=== PATIENT | male | born 1975 | race Caucasian/White ===

== ENCOUNTER 2023-04-05 13:40 | Emergency (ER) | payer MEDICARE ==
[2023-04-05] MEDS ORDERED: NEOSYNEPHRINE 0.5% NASAL SPRAY/DROPS ONE (13:42)
[2023-04-05 13:55] VITALS: TEMP 97
[2023-04-05] MEDS ORDERED: NEOSYNEPHRINE 0.5% NASAL SPRAY/DROPS NS ONE (13:55)
--- NOTE | 2023-04-05 14:01 | ERPHSYRPT ---
- History of Present Illness Time Seen by Provider: 04/05/23 13:50 Source: patient, family Exam Limitations: no limitations Patient Subjective Stated Complaint: pt for sudden onset of nose bleed to right side of nostral, no injury Triage Nursing Assessment: pt alert, anxious, bleeding from right nostril, resp easy, skin w/d/p Physician History: This is a 48-year-old white male patient who was brought into the emergency department by his spouse who provided independent, additional history and who lives in [facility], for sudden onset of right nostril nosebleed. Patient denies trauma of any kind to the nose. Patient has a history of chronic anemia. He has been told that he has a bleeding, clotting disorder. He was not specific. He also was told that he had problems with platelets. He does not see animal cytologist per his report. Patient has a history of hypertension, bipolar disorder, depression and anxiety. Patient had a gastric bypass surgery done in the distant past. He has no known liver disease Timing/Duration: abrupt onset Severity: moderate ENT Location: nose Prearrival Treatment: no prearrival treatment (Right nostril) Modifying Factors: Improves With: nothing Associated Symptoms: epistaxis (Right nostril) Allergies/Adverse Reactions: Penicillins Allergy (Verified 09/09/19 15:05) tramadol [From Ultram] Allergy (Verified 09/09/19 15:05) acetaminophen [From Tylenol] Adverse Reaction (Verified 09/09/19 15:05) Home Medications: ALPRAZolam [Alprazolam] 0.5 mg PO DAILY 04/05/23 [History] Amlodipine Besylate 5 mg [Norvasc 5 mg] 5 mg PO DAILY 04/05/23 [History] Fluoxetine HCl 10 mg [Prozac 10 mg] 10 mg PO DAILY 04/05/23 [History] OLANZapine [Olanzapine] 7.5 mg PO DAILY 04/05/23 [History] Hx Tetanus, Diphtheria Vaccination/Date Given: Yes Hx Influenza Vaccination/Date Given: No Hx Pneumococcal Vaccination/Date Given: No Immunizations Up to Date: Yes Travel Risk - International Travel Have you traveled outside of the country in past 3 weeks: No - Coronavirus Screening Are you exhibiting any of the following symptoms?: No Close contact with a COVID-19 positive Pt in past 14-21 Days: No - Vaccine Status Have you recieved a Covid-19 vaccination: Yes Store Operations Associate: Moderna - Vaccination Dates Date of 2cond Vaccination (if applicable): n/a - Review of Systems Constitutional: No Symptoms Eyes: No Symptoms Ears, Nose, & Throat: Epistaxis Respiratory: No Symptoms Cardiac: No Symptoms Abdominal/Gastrointestinal: No Symptoms Genitourinary Symptoms: No Symptoms Musculoskeletal: No Symptoms Skin: No Symptoms Neurological: No Symptoms Psychological: No Symptoms Endocrine: No Symptoms Hematologic/Lymphatic: No Symptoms Immunological/Allergic: No Symptoms All Other Systems: Reviewed and Negative - Past Medical History Pertinent Past Medical History: Yes Neurological History: No Pertinent History ENT History: No Pertinent History Cardiac History: Hypertension Respiratory History: No Pertinent History Endocrine Medical History: No Pertinent History Musculoskeletal History: No Pertinent History GI Medical History: Other Psycho-Social History: Bipolar, Depression Male Reproductive Disorders: No Pertinent History Other Medical History: dopamine def disorder - Past Surgical History Past Surgical History: Yes Gastrointestinal: Other, Cholecystectomy Genitourinary: No Pertinent History Musculoskeletal: No Pertinent History Male Surgical History: No Pertinent History Other Surgical History: gastric bypass-2007. degen disc. ulcer repair--ate thru gastric pouch - Social History Smoking Status: Current every day smoker How long have you smoked: 10 years Exposure to second hand smoke: No Drug Use: other Patient Lives Alone: No - Nursing Vital Signs Nursing Vital Signs: Initial Vital Signs Temperature 97 F 04/05/23 13:52 Respiratory Rate 20 04/05/23 13:52 Pain Scale Pain Intensity 4 - Physical Exam General Appearance: no apparent distress, alert, anxiety Eye Exam: bilateral eye: normal inspection, PERRL, EOMI Ear Exam: bilateral ear: auricle normal Nasal Exam: active bleeding, dried blood (Right nostril right nostril) Throat Exam: moist mucus membranes (With blood slowly trickling posterior pharynx) Neck Exam: normal inspection, non-tender, supple, full range of motion Cardiovascular/Respiratory Exam: chest non-tender, no respiratory distress Abdominal Exam: non-tender Neurologic Exam: alert, oriented x 3, cooperative, seat trimmer II-XII nml as tested Skin Exam: normal color, warm, dry SpO2 Interpretation: normal O2 Delivery: Room Air - Course Nursing assessment & vital signs reviewed: Yes EKG Interpreted by Me: RATE (68), Sinus Rhythm, NORMAL AXIS, NORMAL QRS, NORMAL ST-T, Other (No acute ischemic changes on today's twelve-lead EKG.) Ordered Tests: Active Orders 24 hr Category Date Time Status EKG-ER Only STAT Care 04/05/23 14:05 Active IV Insertion STAT Care 04/05/23 14:01 Active CBC W DIFF Stat Lab 04/05/23 14:00 Completed CMP Stat Lab 04/05/23 14:00 Completed PROTIME WITH INR Stat Lab 04/05/23 14:00 Completed TROPONIN Q4H Lab 04/05/23 14:00 Completed TROPONIN Q4H Lab 04/05/23 18:15 Ordered TROPONIN Q4H Lab 04/05/23 22:15 Ordered Medication Summary Generic Name Dose Route Start Last Admin Trade Name Freq PRN Reason Stop Dose Admin Sodium Chloride 1,000 mls @ 100 mls/hr 04/05/23 14:15 04/05/23 14:09 Sodium Chloride 0.9% 1000 Ml IV 05/05/23 14:14 100 mls/hr .Q10H TIM Administration Discontinued Medications Generic Name Dose Route Start Last Admin Trade Name Freq PRN Reason Stop Dose Admin Lorazepam 0.5 mg 04/05/23 14:37 Lorazepam 2 Mg/1 Ml 2 Mg Vial IV 04/05/23 14:38 STAT ONE Phenylephrine HCl Confirm 04/05/23 13:42 Neosynephrine 0.5% Nasal [place]/Drops Administered 04/05/23 13:43 Dose 15 ml .ROUTE .STK-MED ONE Phenylephrine HCl 15 ml 04/05/23 13:55 04/05/23 13:56 Neosynephrine 0.5% Nasal [place]/Drops NS 04/05/23 13:56 15 ml STAT ONE Administration Lab/Rad Data: Laboratory Result Diagrams 04/05/23 14:00 04/05/23 14:00 Laboratory Results 04/05/23 04/05/23 04/05/23 Range/Units 14:00 14:00 14:00 WBC (4.0-10.5) x10^3/uL RBC (4.1-5.6) x10^6/uL Hgb (12.5-18.0) g/dL Hct (42-50) % MCV (78-100) fL MCH (26-32) pg MCHC (32-36) g/dL RDW (11.5-14.0) % Plt Count (150-450) x10^3/uL MPV (7.5-11.0) fL Gran % (36.0-66.0) % Immature Gran % (Auto) (0.00-0.4) % Nucleat RBC Rel Count (0.00-0.1) % Eos # (Auto) (0-0.5) x10^3/uL Immature Gran # (Auto) (0.00-0.03) x10^3u/L Absolute Lymphs (auto) (1.0-4.6) x10^3/uL Absolute Monos (auto) (0.0-1.3) x10^3/uL Absolute Nucleated RBC (0.00-0.01) x10^3u/L Lymphocytes % (24.0-44.0) % Monocytes % (0.0-12.0) % Eosinophils % (0.00-5.0) % Basophils % (0.0-0.4) % Absolute Granulocytes (1.4-6.9) x10^3/uL Basophils # (0-0.4) x10^3/uL PT 10.7 (9.4-12.5) SECONDS INR 0.98 (0.8-3.0) Sodium 132 L (137-145) mmol/L Potassium 3.7 (3.5-5.1) mmol/L Chloride 97 L (98-107) mmol/L Carbon Dioxide 29 (22-30) mmol/L Anion Gap 9.3 (5-15) MEQ/L BUN 9 (9-20) mg/dL Creatinine 0.70 (0.66-1.25) mg/dL Estimated GFR 113.0 ML/MIN Glucose 108 H (74-106) mg/dL Calcium 8.8 (8.4-10.2) mg/dL Total Bilirubin 0.30 (0.2-1.3) mg/dL AST 29 (17-59) U/L ALT 20 (0-50) U/L Alkaline Phosphatase 119 (38-126) U/L Troponin I < 0.012 (0.000-0.034) ng/mL Serum Total Protein 7.6 (6.3-8.2) g/dL Albumin 4.0 (3.5-5.0) g/dL 04/05/23 Range/Units 14:00 WBC 6.5 (4.0-10.5) x10^3/uL RBC 4.56 (4.1-5.6) x10^6/uL Hgb 9.9 L (12.5-18.0) g/dL Hct 33.7 L (42-50) % MCV 73.9 L (78-100) fL MCH 21.7 L (26-32) pg MCHC 29.4 L (32-36) g/dL RDW 23.6 H (11.5-14.0) % Plt Count 355 (150-450) x10^3/uL MPV 8.5 (7.5-11.0) fL Gran % 55.7 (36.0-66.0) % Immature Gran % (Auto) 0.3 (0.00-0.4) % Nucleat RBC Rel Count 0.0 (0.00-0.1) % Eos # (Auto) 0.11 (0-0.5) x10^3/uL Immature Gran # (Auto) 0.02 (0.00-0.03) x10^3u/L Absolute Lymphs (auto) 1.91 (1.0-4.6) x10^3/uL Absolute Monos (auto) 0.72 (0.0-1.3) x10^3/uL Absolute Nucleated RBC 0.00 (0.00-0.01) x10^3u/L Lymphocytes % 29.5 (24.0-44.0) % Monocytes % 11.1 (0.0-12.0) % Eosinophils % 1.7 (0.00-5.0) % Basophils % 1.7 (0.0-0.4) % Absolute Granulocytes 3.61 (1.4-6.9) x10^3/uL Basophils # 0.11 (0-0.4) x10^3/uL PT (9.4-12.5) SECONDS INR (0.8-3.0) Sodium (137-145) mmol/L Potassium (3.5-5.1) mmol/L Chloride (98-107) mmol/L Carbon Dioxide (22-30) mmol/L Anion Gap (5-15) MEQ/L BUN (9-20) mg/dL Creatinine (0.66-1.25) mg/dL Estimated GFR ML/MIN Glucose (74-106) mg/dL Calcium (8.4-10.2) mg/dL Total Bilirubin (0.2-1.3) mg/dL AST (17-59) U/L ALT (0-50) U/L Alkaline Phosphatase (38-126) U/L Troponin I (0.000-0.034) ng/mL Serum Total Protein (6.3-8.2) g/dL Albumin (3.5-5.0) g/dL - Progress Progress: improved, re-examined Progress Note: 04/05/23 13:59 This patient's medical issue is 1 of moderate complexity. Level complex in the workup performed is based on review of the patient's past medical history, review the patient's medication list, review the patient's drug allergy list, history of present illness and physical findings on examination. Workup includes placement of intravenous line, CBC, CMP, PT/INR. We also will be infusing low rate normal saline solution. Upon entrance into the emergency department, 3 sprays of Lev-Synephrine were placed into the patient's right nostril and a nasal clip was applied. While this was in place we obtained the posterior Rhino Rocket. We then removed the nasal clamp and placed the posterior Rhino Rocket in the right nostril without difficulty and inflated both ports with air. This seemed to significantly slow down the bleeding from the right nostril. 04/05/23 14:17 Few of the medication list initially provided to us shows no anticoagulation therapy. Patient's spouse specifically stated that he has tolerated Keflex without any issues. Patient began complaining of some central, substernal chest pain without radiation. He describes this as an ache. Patient also states that he has a history of bradycardia. This is chronic. 04/05/23 14:32 I interpreted the laboratory results that have returned thus far. I also interpreted the twelve-lead EKG. There is no evidence of any acute ischemic changes on today's twelve-lead EKG. Patient's hemoglobin is 9.9 which is much higher than it had been in the past. His platelet count is normal. His PT/INR also within normal limits. There is no other acute, emergent findings. We are awaiting the results of the troponin level. I reexamined the patient and he feels as though there is bleeding present. There certainly is not any anterior bleeding from the right nostril. There are some dried clots present that may be dissolving in the posterior pharyngeal region. We contacted [facility] service learning coordinator. They are to call the patient to set up/arrange an outpatient appointment. 04/05/23 14:36 04/05/23 14:59 I reexamined with a light and used a Yankauer suction in the back of her throat. There is no active bleeding coming from superior area. Patient is coughing up some old clot but nothing new. There is no more nasal epistaxis present. Patient is extremely anxious. I emphasized that the patient does not need emergent transfer to another facility. I am discharging him to home. Counseled pt/family regarding: lab results, diagnosis, need for follow-up Medical Desision Making - Independent Historian Additional History obtained from: Spouse - Diagnostic Testing Diagnostic test were ordered, analyzed, and reviewed by me: Yes - Risk of complications The pt has a mod risk of morbidity or mortality based on: Need for prescription drug management - Departure Departure Disposition: Home Clinical Impression: Epistaxis, Anxiety about health Condition: Stable Critical Care Time: No Referrals: DOCTOR,NO FAMILY [Primary Care Provider] - Follow up/PCP as directed Additional Instructions: Rinse your mouth out 2-3 times a day with either plain water or you may use Listerine or other type mouthwash. Take your antibiotics as prescribed. Avoid aspirin and ibuprofen products. The [facility] ear nose and throat clinic will call you with an appointment date and time for follow-up. If the bleeding increases, proceed to the [facility] emergency department. You have been medically stabilized and do not require transfer to another facility. Keep the Rhino Rocket in place until you are evaluated by the service learning coordinator. Prescriptions: Cephalexin Mh 500 mg [Keflex 500 mg] 500 mg PO TID #21 cap
[2023-04-05] MEDS ORDERED: Sodium Chloride 0.9% 1000 ML 1,000 ML ONE (14:05)
[2023-04-05 14:11] LABS: Absolute Neutrophil Ct (ANC) 3.61 x10^3/uL (1.4-6.9); BASOPHIL % 1.7 % (0.0-0.4); Basophil (Absolute #) 0.11 x10^3/uL (0-0.4); Eosinophil % 1.7 % (0.00-5.0); Eosinophil (Absolute #) 0.11 x10^3/uL (0-0.5); Hematocrit 33.7 % (42-50); Hemoglobin 9.9 g/dL (12.5-18.0); IMMATURE GRAN # 0.02 x10^3u/L (0.00-0.03); IMMATURE GRAN % 0.3 % (0.00-0.4); Lymphocyte (Absolute #) 1.91 x10^3/uL (1.0-4.6); Lymphocytes % 29.5 % (24.0-44.0); Mean Cell Volume 73.9 fL (78-100); Mean Corpuscular Hemoglobin 21.7 pg (26-32); Mean Corpuscular Hgb Concent. 29.4 g/dL (32-36); Mean Platelet Volume 8.5 fL (7.5-11.0); Monocyte (Absolute #) 0.72 x10^3/uL (0.0-1.3); Monocytes % 11.1 % (0.0-12.0); Neutrophil % 55.7 % (36.0-66.0); Platelet Count 355 x10^3/uL (150-450); Red Blood Count 4.56 x10^6/uL (4.1-5.6); Red Cell Distribution Width 23.6 % (11.5-14.0); White Blood Count 6.5 x10^3/uL (4.0-10.5)
[2023-04-05] MEDS ORDERED: Sodium Chloride 0.9% 1000 ML 1,000 ML IV SCH (14:15)
[2023-04-05 14:26] LABS: ANION GAP 9.3 MEQ/L (5-15); BILIRUBIN,TOTAL 0.3 mg/dL (0.2-1.3); Calcium 8.8 mg/dL (8.4-10.2); Creatinine 1 0.7 mg/dL (0.66-1.25); INR 0.98 (0.8-3.0); PROTIME 10.7 SECONDS (9.4-12.5); Potassium 3.7 mmol/L (3.5-5.1); Total Protein 7.6 g/dL (6.3-8.2)
[2023-04-05] MEDS ORDERED: Ativan 2 MG/1 ML VIAL IV ONE ×2 (14:37→15:02)
[2023-04-05] MEDS ORDERED: Ativan 2 MG/1 ML VIAL ONE ×2 (15:01→15:12)
[2023-04-05 15:23] VITALS: RESP 17; O2SAT 100
[2023-04-05 15:24] VITALS: BP 99/63; PULSE 130
[2023-04-05 15:31] LABS: Slide Review 1 YES
== END 2023-04-05 15:45 | disposition home or self-care (01) ==
LOC: ED 13:40
DX: R04.0 Epistaxis (principal); F45.9 Somatoform disorder, unspecified; R07.9 Chest pain, unspecified; I10 Essential (primary) hypertension; Z79.899 Other long term (current) drug therapy; Z72.0 Tobacco use
CPT/HCPCS: 30905; 36000; 36415; 80053; 84484; 85025; 85610; 93005; 96374; 99284; J2060; A9270-GY

== ENCOUNTER 2023-04-10 09:43 | Emergency (ER) | payer MEDICARE ==
[2023-04-10] MEDS ORDERED: Sodium Chloride 0.9% 1000 ML 1,000 ML IV SCH (10:00)
[2023-04-10 10:01] VITALS: TEMP 97
[2023-04-10] MEDS ORDERED: Sodium Chloride 0.9% 1000 ML 1,000 ML ONE (10:20)
[2023-04-10 10:27] LABS: Absolute Neutrophil Ct (ANC) 4.22 x10^3/uL (1.4-6.9); Basophil (Absolute #) 0.06 x10^3/uL (0-0.4); Eosinophil % 1.4 % (0.00-5.0); Eosinophil (Absolute #) 0.08 x10^3/uL (0-0.5); Hematocrit 33.4 % (42-50); Hemoglobin 9.9 g/dL (12.5-18.0); IMMATURE GRAN # 0.01 x10^3u/L (0.00-0.03); IMMATURE GRAN % 0.2 % (0.00-0.4); Lymphocyte (Absolute #) 0.84 x10^3/uL (1.0-4.6); Lymphocytes % 14.4 % (24.0-44.0); Mean Cell Volume 75.1 fL (78-100); Mean Corpuscular Hemoglobin 22.2 pg (26-32); Mean Corpuscular Hgb Concent. 29.6 g/dL (32-36); Mean Platelet Volume 8.6 fL (7.5-11.0); Monocyte (Absolute #) 0.61 x10^3/uL (0.0-1.3); Monocytes % 10.5 % (0.0-12.0); Neutrophil % 72.5 % (36.0-66.0); Platelet Count 379 x10^3/uL (150-450); Red Blood Count 4.45 x10^6/uL (4.1-5.6); Red Cell Distribution Width 22.6 % (11.5-14.0); White Blood Count 5.8 x10^3/uL (4.0-10.5)
[2023-04-10] MEDS ORDERED: Ativan 2 MG/1 ML VIAL IV ONE (10:29)
[2023-04-10] MEDS ORDERED: Ativan 2 MG/1 ML VIAL ONE (10:31)
[2023-04-10 10:35] VITALS: O2SAT 97
[2023-04-10 10:41] LABS: INR 0.94 (0.8-3.0); PROTIME 10.3 SECONDS (9.4-12.5)
[2023-04-10 10:44] LABS: ALBUMIN 4.1 g/dL (3.5-5.0); BILIRUBIN,TOTAL 0.3 mg/dL (0.2-1.3); Calcium 8.8 mg/dL (8.4-10.2); Creatinine 1 0.66 mg/dL (0.66-1.25); Potassium 3.7 mmol/L (3.5-5.1); Total Protein 7.7 g/dL (6.3-8.2)
--- NOTE | 2023-04-10 10:47 | XRAY ---
Indication: Weakness. Comparison: None Portable chest hyperinflated and clear with incidental tiny left upper lung calcified granuloma. Heart not enlarged. Bony thorax intact with mild osteopenia and mild distal scoliosis centered at thoracolumbar junction. Impression: Nonacute hyperinflated chest with chronic features.
[2023-04-10 11:03] LABS: INFLUENZA A NEGATIVE (NEGATIVE); INFLUENZA B NEGATIVE (NEGATIVE); RESPIRATORY SYNCTIAL VIRUS NEGATIVE (NEGATIVE); SARS-CoV-2 Xpert Express NEGATIVE (NEGATIVE)
[2023-04-10 12:07] VITALS: BP 138/89; PULSE 66; RESP 21
--- NOTE | 2023-04-10 12:12 | ERPHSYRPT ---
- History of Present Illness Time Seen by Provider: 04/10/23 10:15 Source: patient, family Exam Limitations: no limitations Patient Subjective Stated Complaint: pt here for multi cos, dry mouth, coughing up sputum, aches. pt has nasal trumpet to right side of nostril from nose bleed on 04/05/23. he is unable to get a drs apt to take out, office hosptial referred him to refused to see pt, Triage Nursing Assessment: pt alert, resp easy,pt anxious, uncooperative at times. skin w/d/p.no edema noted, abd soft, Physician History: Patient is a 48-year-old white male who presents with multiple complaints primarily weakness cold symptoms flu like aches and pains he feels he is losing his voice and he has a cough producing some sputum. His other big problem is that he has a Rhino Rocket in the right nares that has been there since April 05. He has been unable to make an appointment with an ENT to have it removed. Allergies/Adverse Reactions: Penicillins Allergy (Verified 04/10/23 09:50) tramadol [From Ultram] Allergy (Verified 04/10/23 09:50) acetaminophen [From Tylenol] Adverse Reaction (Verified 04/10/23 09:50) Home Medications: ALPRAZolam [Alprazolam] 0.5 mg PO DAILY 04/05/23 [History] Amlodipine Besylate 5 mg [Norvasc 5 mg] 5 mg PO DAILY 04/05/23 [History] Fluoxetine HCl 10 mg [Prozac 10 mg] 10 mg PO DAILY 04/05/23 [History] OLANZapine [Olanzapine] 7.5 mg PO DAILY 04/05/23 [History] Hx Tetanus, Diphtheria Vaccination/Date Given: Yes Hx Influenza Vaccination/Date Given: No Hx Pneumococcal Vaccination/Date Given: No Immunizations Up to Date: Yes Travel Risk - International Travel Have you traveled outside of the country in past 3 weeks: No - Coronavirus Screening Are you exhibiting any of the following symptoms?: No Close contact with a COVID-19 positive Pt in past 14-21 Days: No - Vaccine Status Have you recieved a Covid-19 vaccination: Yes 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 - Vaccination Dates Date of 2cond Vaccination (if applicable): n/a - Review of Systems Constitutional: No Fever, No Chills Eyes: No Symptoms Ears, Nose, & Throat: No Symptoms, Epistaxis Respiratory: No Cough, No Dyspnea Cardiac: No Chest Pain, No Edema, No Syncope Abdominal/Gastrointestinal: No Abdominal Pain, No Nausea, No Vomiting, No Diarrhea Genitourinary Symptoms: No Dysuria Musculoskeletal: No Back Pain, No Neck Pain Skin: No Rash Neurological: No Dizziness, No Focal Weakness, No Sensory Changes Psychological: No Symptoms Endocrine: No Symptoms All Other Systems: Reviewed and Negative - Past Medical History Pertinent Past Medical History: Yes Neurological History: No Pertinent History ENT History: No Pertinent History Cardiac History: Hypertension Respiratory History: No Pertinent History Endocrine Medical History: No Pertinent History Musculoskeletal History: No Pertinent History GI Medical History: Other Psycho-Social History: Bipolar, Depression Male Reproductive Disorders: No Pertinent History Other Medical History: dopamine def disorder - Past Surgical History Past Surgical History: Yes Gastrointestinal: Other, Cholecystectomy Genitourinary: No Pertinent History Musculoskeletal: No Pertinent History Male Surgical History: No Pertinent History Other Surgical History: gastric bypass-2007. degen disc. ulcer repair--ate thru gastric pouch - Social History Smoking Status: Current every day smoker How long have you smoked: 10 years Exposure to second hand smoke: No Drug Use: other Patient Lives Alone: No - Nursing Vital Signs Nursing Vital Signs: Initial Vital Signs Blood Pressure 206/101 04/10/23 10:00 Pain Scale Pain Intensity 0 - Physical Exam General Appearance: no apparent distress, alert Eye Exam: PERRL/EOMI, eyes nml inspection Ears, Nose, Throat Exam: normal ENT inspection, TMs normal, pharynx normal, moist mucous membranes Neck Exam: normal inspection, non-tender, supple, full range of motion Respiratory Exam: normal breath sounds, lungs clear, No respiratory distress Cardiovascular Exam: regular rate/rhythm, normal heart sounds, normal peripheral pulses Gastrointestinal/Abdomen Exam: soft, normal bowel sounds, No tenderness, No mass Back Exam: normal inspection, normal range of motion, No CVA tenderness, No vertebral tenderness Extremity Exam: normal inspection, normal range of motion, pelvis stable Neurologic Exam: alert, oriented x 3, cooperative, normal mood/affect, nml cerebellar function, nml station & gait, sensation nml, No motor deficits Skin Exam: normal color, warm, dry, No rash Lymphatic Exam: No adenopathy SpO2: 97 - Course Nursing assessment & vital signs reviewed: Yes EKG Interpreted by Me: RATE (90), Sinus Rhythm, NORMAL AXIS, Non-specific ST Changes, Other (old inf mi) - Radiology Exams Chest X-ray Interpretation: Reviewed by me Ordered Tests: Active Orders 24 hr Category Date Time Status EKG-ER Only STAT Care 04/10/23 09:57 Active IV Insertion STAT Care 04/10/23 09:57 Active CHEST 1 VIEW (PORTABLE) Stat Exams 04/10/23 09:58 Completed AMYLASE Stat Lab 04/10/23 10:17 Completed CBC W DIFF Stat Lab 04/10/23 10:17 Completed CMP Stat Lab 04/10/23 10:17 Completed LIPASE Stat Lab 04/10/23 10:17 Completed Lactic Acid Stat Lab 04/10/23 10:20 Completed PROTIME WITH INR Stat Lab 04/10/23 10:17 Completed TROPONIN Q4H Lab 04/10/23 10:17 Completed TROPONIN Q4H Lab 04/10/23 14:00 Ordered TROPONIN Q4H Lab 04/10/23 18:00 Ordered UA W/RFX UR CULTURE Stat Lab 04/10/23 09:58 Ordered Urine Triage Profile Stat Lab 04/10/23 09:58 Ordered Medication Summary Generic Name Dose Route Start Last Admin Trade Name Freq PRN Reason Stop Dose Admin Sodium Chloride 1,000 mls @ 100 mls/hr 04/10/23 10:00 04/10/23 10:22 Sodium Chloride 0.9% 1000 Ml IV 05/10/23 09:59 100 mls/hr .Q10H TIM Administration Discontinued Medications Generic Name Dose Route Start Last Admin Trade Name Freq PRN Reason Stop Dose Admin Lorazepam 1 mg 04/10/23 10:29 04/10/23 10:32 Lorazepam 2 Mg/1 Ml 2 Mg Vial IV 04/10/23 10:30 1 mg STAT ONE Administration Lorazepam Confirm 04/10/23 10:31 Lorazepam 2 Mg/1 Ml 2 Mg Vial Administered 04/10/23 10:32 Dose 2 mg .ROUTE .STK-MED ONE Lab/Rad Data: Laboratory Result Diagrams 04/10/23 10:17 04/10/23 10:17 Laboratory Results 04/10/23 04/10/23 04/10/23 Range/Units 10:20 10:17 10:17 WBC (4.0-10.5) x10^3/uL RBC (4.1-5.6) x10^6/uL Hgb (12.5-18.0) g/dL Hct (42-50) % MCV (78-100) fL MCH (26-32) pg MCHC (32-36) g/dL RDW (11.5-14.0) % Plt Count (150-450) x10^3/uL MPV (7.5-11.0) fL Gran % (36.0-66.0) % Immature Gran % (Auto) (0.00-0.4) % Nucleat RBC Rel Count (0.00-0.1) % Eos # (Auto) (0-0.5) x10^3/uL Immature Gran # (Auto) (0.00-0.03) x10^3u/L Absolute Lymphs (auto) (1.0-4.6) x10^3/uL Absolute Monos (auto) (0.0-1.3) x10^3/uL Absolute Nucleated RBC (0.00-0.01) x10^3u/L Lymphocytes % (24.0-44.0) % Monocytes % (0.0-12.0) % Eosinophils % (0.00-5.0) % Basophils % (0.0-0.4) % Absolute Granulocytes (1.4-6.9) x10^3/uL Basophils # (0-0.4) x10^3/uL PT (9.4-12.5) SECONDS INR (0.8-3.0) Sodium (137-145) mmol/L Potassium (3.5-5.1) mmol/L Chloride (98-107) mmol/L Carbon Dioxide (22-30) mmol/L Anion Gap (5-15) MEQ/L BUN (9-20) mg/dL Creatinine (0.66-1.25) mg/dL Estimated GFR ML/MIN Glucose (74-106) mg/dL Lactic Acid 1.1 (0.4-2.0) Calcium (8.4-10.2) mg/dL Total Bilirubin (0.2-1.3) mg/dL AST (17-59) U/L ALT (0-50) U/L Alkaline Phosphatase (38-126) U/L Troponin I < 0.012 (0.000-0.034) ng/mL Serum Total Protein (6.3-8.2) g/dL Albumin (3.5-5.0) g/dL Amylase (30-110) U/L Lipase (23-300) U/L Influenza Type A Ag NEGATIVE (NEGATIVE) Influenza Type B Ag NEGATIVE (NEGATIVE) RSV (PCR) NEGATIVE (NEGATIVE) SARS-CoV-2 (PCR) NEGATIVE (NEGATIVE) 04/10/23 04/10/23 04/10/23 Range/Units 10:17 10:17 10:17 WBC 5.8 (4.0-10.5) x10^3/uL RBC 4.45 (4.1-5.6) x10^6/uL Hgb 9.9 L (12.5-18.0) g/dL Hct 33.4 L (42-50) % MCV 75.1 L (78-100) fL MCH 22.2 L (26-32) pg MCHC 29.6 L (32-36) g/dL RDW 22.6 H (11.5-14.0) % Plt Count 379 (150-450) x10^3/uL MPV 8.6 (7.5-11.0) fL Gran % 72.5 H (36.0-66.0) % Immature Gran % (Auto) 0.2 (0.00-0.4) % Nucleat RBC Rel Count 0.0 (0.00-0.1) % Eos # (Auto) 0.08 (0-0.5) x10^3/uL Immature Gran # (Auto) 0.01 (0.00-0.03) x10^3u/L Absolute Lymphs (auto) 0.84 L (1.0-4.6) x10^3/uL Absolute Monos (auto) 0.61 (0.0-1.3) x10^3/uL Absolute Nucleated RBC 0.00 (0.00-0.01) x10^3u/L Lymphocytes % 14.4 L (24.0-44.0) % Monocytes % 10.5 (0.0-12.0) % Eosinophils % 1.4 (0.00-5.0) % Basophils % 1.0 (0.0-0.4) % Absolute Granulocytes 4.22 (1.4-6.9) x10^3/uL Basophils # 0.06 (0-0.4) x10^3/uL PT 10.3 (9.4-12.5) SECONDS INR 0.94 (0.8-3.0) Sodium 132 L (137-145) mmol/L Potassium 3.7 (3.5-5.1) mmol/L Chloride 94 L (98-107) mmol/L Carbon Dioxide 30 (22-30) mmol/L Anion Gap 12.0 (5-15) MEQ/L BUN 8 L (9-20) mg/dL Creatinine 0.66 (0.66-1.25) mg/dL Estimated GFR 115.0 ML/MIN Glucose 113 H (74-106) mg/dL Lactic Acid (0.4-2.0) Calcium 8.8 (8.4-10.2) mg/dL Total Bilirubin 0.30 (0.2-1.3) mg/dL AST 21 (17-59) U/L ALT 16 (0-50) U/L Alkaline Phosphatase 97 (38-126) U/L Troponin I (0.000-0.034) ng/mL Serum Total Protein 7.7 (6.3-8.2) g/dL Albumin 4.1 (3.5-5.0) g/dL Amylase 50 (30-110) U/L Lipase 40 (23-300) U/L Influenza Type A Ag (NEGATIVE) Influenza Type B Ag (NEGATIVE) RSV (PCR) (NEGATIVE) SARS-CoV-2 (PCR) (NEGATIVE) - Progress Progress: improved Progress Note: 04/10/23 12:10 Rhino Rocket was removed without incident or further recurrent bleeding. Medical Desision Making - Independent Historian Additional History obtained from: Relative/friend - Diagnostic Testing Diagnostic test were ordered, analyzed, and reviewed by me: Yes Radiological Interpretation: Reviewed by me - Risk of complications Low Risk: Low risk of morbidity from additional dx testing or treatment - Departure Departure Disposition: Home Clinical Impression: Upper respiratory infection, Epistaxis Condition: Stable Critical Care Time: No Referrals: BRYN BLACK DO [Primary Care Provider] - Follow up/PCP as directed
[2023-04-10 12:35] LABS: Slide Review 1 YES
== END 2023-04-10 12:15 | disposition home or self-care (01) ==
LOC: ED 09:43
DX: J06.9 Acute upper respiratory infection, unspecified (principal); R04.0 Epistaxis; R53.1 Weakness; M79.10 Myalgia, unspecified site; R05.9 Cough, unspecified; I10 Essential (primary) hypertension; Z79.899 Other long term (current) drug therapy; Z72.0 Tobacco use; Z20.828 Contact with and (suspected) exposure to other viral communicable diseases
CPT/HCPCS: 0241U; 36000; 36415; 71045; 80053; 82150; 83605; 83690; 84484; 85025; 85610; 93005; 96360; 96374; 99284; J2060

== ENCOUNTER 2023-05-26 14:07 | Emergency (ER) | payer MEDICAID, MEDICARE ==
--- NOTE | 2023-05-26 14:38 | ERPHSYRPT ---
- History of Present Illness Time Seen by Provider: 05/26/23 14:37 Source: patient Exam Limitations: no limitations Physician History: This is a 48-year-old white male patient who has had symptoms of headache, intermittent cough, right ear fullness and body aches for over 3 weeks. He has no known exposure to specific individuals that have similar symptoms or been diagnosed with flu. Patient denies chest pain. He does not have shortness of breath at this time. Patient has a history anxiety and hypertension. Patient has not had a fever. He has had no vomiting or diarrhea symptoms. Timing/Duration: week(s) (For 3 weeks), intermittent Cough Quality/Degree: moderate, dry cough Possible Cause: no prior episodes Modifying Factors: Improves With: coughing Associated Symptoms: cough, headache, muscle aches, sore throat Allergies/Adverse Reactions: Penicillins Allergy (Verified 04/10/23 09:50) tramadol [From Ultram] Allergy (Verified 04/10/23 09:50) acetaminophen [From Tylenol] Adverse Reaction (Verified 04/10/23 09:50) Home Medications: ALPRAZolam [Alprazolam] 0.5 mg PO DAILY 04/05/23 [History] Amlodipine Besylate 5 mg [Norvasc 5 mg] 5 mg PO DAILY 04/05/23 [History] Fluoxetine HCl 10 mg [Prozac 10 mg] 10 mg PO DAILY 04/05/23 [History] OLANZapine [Olanzapine] 7.5 mg PO DAILY 04/05/23 [History] Hx Tetanus, Diphtheria Vaccination/Date Given: Yes Hx Influenza Vaccination/Date Given: No Hx Pneumococcal Vaccination/Date Given: No Travel Risk - International Travel Have you traveled outside of the country in past 3 weeks: No - Coronavirus Screening Are you exhibiting any of the following symptoms?: Yes Symptoms: Cough: New Onset, Headaches/Body Aches/Fatigue - Vaccine Status Have you recieved a Covid-19 vaccination: Yes Clinical Marketing Manager: Moderna - Vaccination Dates Date of 2cond Vaccination (if applicable): n/a - Review of Systems Constitutional: No Symptoms Eyes: No Symptoms Ears, Nose, & Throat: No Symptoms Respiratory: Cough Cardiac: No Symptoms Abdominal/Gastrointestinal: No Symptoms Musculoskeletal: Arthralgias, Myalgias Skin: No Symptoms Neurological: Headache Psychological: No Symptoms Endocrine: No Symptoms Hematologic/Lymphatic: No Symptoms Immunological/Allergic: No Symptoms All Other Systems: Reviewed and Negative - Past Medical History Pertinent Past Medical History: Yes Neurological History: No Pertinent History ENT History: No Pertinent History Cardiac History: Hypertension Respiratory History: No Pertinent History Endocrine Medical History: No Pertinent History Musculoskeletal History: No Pertinent History GI Medical History: Other Psycho-Social History: Bipolar, Depression Male Reproductive Disorders: No Pertinent History Other Medical History: dopamine def disorder - Past Surgical History Past Surgical History: Yes Gastrointestinal: Other, Cholecystectomy Genitourinary: No Pertinent History Musculoskeletal: No Pertinent History Male Surgical History: No Pertinent History Other Surgical History: gastric bypass-2007. degen disc. ulcer repair--ate thru gastric pouch - Social History Smoking Status: Current every day smoker How long have you smoked: 10 years Exposure to second hand smoke: No Drug Use: other Patient Lives Alone: No - Nursing Vital Signs Nursing Vital Signs: Initial Vital Signs Temperature 99.0 F 05/26/23 14:34 Pulse Rate 64 05/26/23 14:34 Respiratory Rate 20 05/26/23 14:34 Blood Pressure 186/94 05/26/23 14:34 O2 Sat by Pulse Oximetry 98 05/26/23 14:34 Pain Scale Pain Intensity 5 - Physical Exam General Appearance: no apparent distress, alert, anxiety Eye Exam: PERRL/EOMI, eyes nml inspection Ears, Nose, Throat Exam: normal ENT inspection, moist mucous membranes Neck Exam: normal inspection, non-tender, supple, full range of motion Respiratory Exam: normal breath sounds, lungs clear, airway intact, No chest tenderness, No respiratory distress Cardiovascular Exam: regular rate/rhythm, normal heart sounds, normal peripheral pulses Gastrointestinal/Abdomen Exam: soft, normal bowel sounds, No tenderness Rectal Exam: not done Back Exam: normal inspection, normal range of motion, No CVA tenderness, No vertebral tenderness Extremity Exam: normal inspection, normal range of motion, pelvis stable Neurologic Exam: alert, oriented x 3, cooperative, elevator attendant II-XII nml as tested, normal mood/affect, nml cerebellar function, nml station & gait, sensation nml Skin Exam: normal color, warm, dry Lymphatic Exam: No adenopathy SpO2 Interpretation: normal O2 Delivery: Room Air - Course Nursing assessment & vital signs reviewed: Yes Ordered Tests: Active Orders 24 hr Category Date Time Status CHEST 1 VIEW (PORTABLE) Stat Exams 05/26/23 14:38 Completed Medication Summary Discontinued Medications Generic Name Dose Route Start Last Admin Trade Name Marques PRN Reason Stop Dose Admin Ondansetron HCl 4 mg 05/26/23 15:17 05/26/23 15:51 Zofran 4 Mg/Udtablet Orally Disintegrating PO 05/26/23 15:18 4 mg STAT ONE Administration Ondansetron HCl Confirm 05/26/23 15:50 Zofran 4 Mg/Udtablet Orally Disintegrating Administered 05/26/23 15:51 Dose 4 mg .ROUTE .STK-MED ONE Lab/Rad Data: Laboratory Results 05/26/23 05/26/23 Range/Units 14:50 14:50 Influenza Type A Ag NEGATIVE (NEGATIVE) Influenza Type B Ag NEGATIVE (NEGATIVE) RSV (PCR) NEGATIVE (NEGATIVE) SARS-CoV-2 (PCR) NEGATIVE (NEGATIVE) Group A Strep Antibody NOT DETECTED (NEGATIVE) - Progress Progress: improved, re-examined Air Movement: good Progress Note: 05/26/23 16:13 Patient's medical issue is 1 of low complexity. Level complex in the workup performed is based on review of the patient's past medical history review of the patient's medication list, review the patient's drug allergy list, history present illness and physical findings on examination. Workup of this patient close chest x-ray as well as viral swabs and group A strep swab. The radiologist interpreted the chest x-ray and I reviewed the impression. There is a new right mid to lower and to a lesser extent left base groundglass airspace disease without consolidation or large effusion Counseled pt/family regarding: lab results, diagnosis, need for follow-up, rad results Medical Desision Making - Diagnostic Testing Diagnostic test were ordered, analyzed, and reviewed by me: Yes Radiological Interpretation: Reviewed by me, Teleradiologist Report - Risk of complications The pt has a mod risk of morbidity or mortality based on: Need for prescription drug management - Departure Departure Disposition: Home Clinical Impression: Infiltrate of lung present on chest x-ray Condition: Stable Critical Care Time: No Referrals: DOCTOR,NO FAMILY [Primary Care Provider] - Follow up/PCP as directed Additional Instructions: Drink plenty of fluids. Avoid any exposure to smoke of any kind. Take your new medications as prescribed. Call your primary care provider on 05/29/2023 to make arranges for further evaluation management. Prescriptions: Benzonatate 200 mg PO TID PRN #10 cap PRN Reason: Cough Prednisone 10 mg [Deltasone 10 mg] 10 mg PO TID #12 tablet Albuterol 8 gm Mdi Hfa [Ventolin Hfa MDI] 8 gm IH Q4H #1 unit Azithromycin 250 mg [Zithromax 250 MG TABLET] 250 mg PO ZPACK #6 tablet
[2023-05-26 14:49] VITALS: TEMP 99
[2023-05-26] MEDS ORDERED: ZOFRAN ODT 4 MG PO ONE (15:17)
[2023-05-26 15:33] LABS: INFLUENZA A NEGATIVE (NEGATIVE); INFLUENZA B NEGATIVE (NEGATIVE); RESPIRATORY SYNCTIAL VIRUS NEGATIVE (NEGATIVE); SARS-CoV-2 Xpert Express NEGATIVE (NEGATIVE)
--- NOTE | 2023-05-26 15:41 | XRAY ---
Indication: Cough. Congestion. Comparison: April 10, 2023 Portable chest demonstrates new right mid to upper lung and lesser degree left lung base groundglass airspace disease without consolidation/large effusion. Heart not enlarged. Bony thorax intact again with old right 6 rib fracture.
[2023-05-26] MEDS ORDERED: ZOFRAN ODT 4 MG ONE (15:50)
[2023-05-26 16:36] VITALS: BP 176/96; PULSE 60; RESP 18; O2SAT 96
== END 2023-05-26 16:36 | disposition home or self-care (01) ==
LOC: ED 14:07
DX: R91.8 Other nonspecific abnormal finding of lung field (principal); R51.9 Headache, unspecified; R05.3 Chronic cough; M79.10 Myalgia, unspecified site; I10 Essential (primary) hypertension; Z79.52 Long term (current) use of systemic steroids; Z79.899 Other long term (current) drug therapy; Z72.0 Tobacco use
CPT/HCPCS: 0241U; 71045; 87651; 99283; Q0162